=== PATIENT | female | born 2000 | race Caucasian/White ===

== ENCOUNTER 2021-05-06 13:38 | Inpatient (IN) ==
[~2021-05-06 13:38] MED LIST: *HR* Propofol 200 MG/20 ML VIAL IVP ONE; *HR* Rocuronium Bromide 50 MG/5 ML VIAL ONE; Lidocaine -MPF 2% 5 ML VIAL ONE
[2021-05-06] MEDS ORDERED: *HR* Succinylcholine 200 MG/10 ML VIAL IVP ONE (13:40)
[2021-05-06] MEDS ORDERED: Naloxone 0.4 MG/ML INJ IVP PRN (13:43)
[2021-05-06] MEDS ORDERED: Azithromycin 500 MG in 0.9 % Sodium Chloride 250 ML IVPB PRN (13:43)
[2021-05-06] MEDS ORDERED: Metoclopramide 10 MG/2 ML VIAL IVP PRN ×2 (13:43→14:21)
[2021-05-06] MEDS ORDERED: Ondansetron 4 MG/2 ML VIAL IVP PRN ×2 (13:43→14:21)
[2021-05-06] MEDS ORDERED: Famotidine 20 MG/2 ML VIAL IVP PRN (13:43)
[2021-05-06] MEDS ORDERED: Ringers Solution, Lactated 1,000 ML IVC SCH (13:45)
[2021-05-06] MEDS ORDERED: *HR* Oxytocin 10 UNIT/ML VIAL ONE (13:50)
[2021-05-06] MEDS ORDERED: Oxytocin 20 units/ LR 1000 mL 20 UNIT/1,000 ML BAG IVC ONE (13:51)
[2021-05-06] MEDS ORDERED: *HR* FentaNYL (PF) 250 MCG/5 ML VIAL ONE (13:57)
[2021-05-06] MEDS ORDERED: Ondansetron 4 MG/2 ML VIAL ONE (14:09)
[2021-05-06 14:12] LABS: Basophils % 0.3 %; Eosinophils # 0.3 K/mcL (0.0-0.6); Eosinophils % 2.7 %; Hematocrit 31.8 % (35.3-44.9); Hemoglobin 10.7 g/dL (11.5-15.4); Immature Granulocytes % 0.4 % (0-4); Lymphocytes # 2.1 K/mcL (0.6-4.6); Lymphocytes % 18.7 %; Mean Corpuscular HGB Conc 33.6 g/dL (31.6-35.5); Mean Corpuscular Hemoglobin 28.2 pg (28.0-33.3); Mean Corpuscular Volume 83.9 fL (83.0-100.0); Mean Platelet Volume 11.4 fL (9.4-12.4); Monocytes # 0.5 K/mcL (0.0-1.3); Monocytes % 4.5 %; Neutrophils # 8.4 K/mcL (1.6-8.9); Platelet Count 261 K/mcL (140-400); Red Blood Count 3.79 M/mcL (3.82-4.97); Segmented Neutrophils % 73.4 %; White Blood Count 11.5 K/mcL (4.3-11.1)
[2021-05-06] MEDS ORDERED: Ketorolac 30 MG/ML VIAL ONE (14:18)
[2021-05-06] MEDS ORDERED: Acetaminophen IV 1,000 MG/100 ML BAG IVPB ONE (14:19)
[2021-05-06] MEDS ORDERED: Simethicone 80 MG TAB.CHEW PO PRN (14:21)
[2021-05-06] MEDS ORDERED: Rho Immune Globulin 1,500 UNIT SYRINGE IM ONE (14:21)
[2021-05-06] MEDS ORDERED: Oxytocin 20 units/ LR 1000 mL 20 UNIT/1,000 ML BAG IVC SCH (14:30)
[2021-05-06 14:50] LABS: Influenza A PCR Negative (Negative); Influenza B PCR Negative (Negative); Resp. Syncytial Virus PCR Negative (Negative)
[2021-05-06] MEDS ORDERED: *HR* HYDROmorphone PF 0.5 MG/0.5 ML SYRINGE IVP PRN (15:07)
[2021-05-06] MEDS ORDERED: Promethazine 6.25 MG in Water for inj. (sterile) 20 ML IVPB PRN (15:07)
[2021-05-06] MEDS ORDERED: *HR* Labetalol 20 MG/4 ML SYRINGE IVP PRN (15:07)
[2021-05-06] MEDS ORDERED: Ringers Solution, Lactated 1,000 ML ONE (15:27)
[2021-05-06 15:36] LABS: SARS-CoV-2 by PCR (In House) Positive (Negative)
[2021-05-06 16:24] LABS: Amphetamine Screen,Urine Positive ng/mL (Cutoff=1000); Barbiturate Screen,Urine Negative ng/mL (Cutoff=200); Benzodiazepines Screen,Urine Negative ng/mL (Cutoff=200); Cannabinoid Screen,Urine Negative ng/mL (Cutoff = 50); Cocaine Screen,Urine Negative ng/mL (Cutoff= 300); Opiate Screen,Urine Negative ng/mL (Cutoff=300); Phencyclidine Screen,Urine Negative ng/mL (Cutoff=25)
[2021-05-06] MEDS: Acetaminophen 325 MG TABLET PO SCH (18:34)
[2021-05-06] MEDS: *HR* OxyCODONE Immed Rel 5 MG TABLET PO PRN (18:35)
[2021-05-06] MEDS: Ibuprofen 600 MG TABLET PO SCH (18:35)
[2021-05-07] MEDS: metroNIDAZOLE 500 MG TABLET PO SCH ×4 (00:28→19:57)
[2021-05-07] MEDS: Ibuprofen 600 MG TABLET PO SCH ×3 (00:28→18:50)
[2021-05-07] MEDS: cefOXitin 2,000 MG in 0.9 % Sodium Chloride Mini Bag 100 ML IVPB SCH ×2 (00:29→09:38)
[2021-05-07] MEDS: *HR* OxyCODONE Immed Rel 5 MG TABLET PO PRN ×2 (04:36→19:57)
[2021-05-07] MEDS: Acetaminophen 325 MG TABLET PO SCH ×2 (04:37→18:50)
[2021-05-07 04:59] LABS: Basophils % 0.1 %; Hematocrit 24.9 % (35.3-44.9); Immature Granulocytes % 0.5 % (0-4); Lymphocytes # 1.6 K/mcL (0.6-4.6); Lymphocytes % 10.7 %; Mean Corpuscular HGB Conc 34.1 g/dL (31.6-35.5); Mean Corpuscular Hemoglobin 28.6 pg (28.0-33.3); Mean Corpuscular Volume 83.8 fL (83.0-100.0); Mean Platelet Volume 11.3 fL (9.4-12.4); Monocytes # 0.7 K/mcL (0.0-1.3); Monocytes % 4.7 %; Neutrophils # 12.9 K/mcL (1.6-8.9); Platelet Count 252 K/mcL (140-400); Red Blood Count 2.97 M/mcL (3.82-4.97); Red Cell Distribution Width 14.2 % (11.5-14.5); White Blood Count 15.3 K/mcL (4.3-11.1)
[2021-05-07 05:10] LABS: Hemoglobin 8.5 g/dL (11.5-15.4)
[2021-05-07] MEDS: Prenatal Vit/FA 1 EACH TABLET PO SCH (09:39)
[2021-05-07] MEDS: levETIRAcetam 250 MG TABLET PO SCH ×2 (11:32→19:57)
[2021-05-08] MEDS: Acetaminophen 325 MG TABLET PO SCH (01:38)
[2021-05-08] MEDS: Ibuprofen 600 MG TABLET PO SCH ×2 (01:38→10:01)
[2021-05-08 02:15] LABS: Basophils % 0.1 %; Eosinophils # 0.2 K/mcL (0.0-0.6); Eosinophils % 2.1 %; Hematocrit 20.9 % (35.3-44.9); Immature Granulocytes % 0.7 % (0-4); Lymphocytes # 2.1 K/mcL (0.6-4.6); Lymphocytes % 25.8 %; Mean Corpuscular HGB Conc 32.1 g/dL (31.6-35.5); Mean Corpuscular Hemoglobin 27.7 pg (28.0-33.3); Mean Corpuscular Volume 86.4 fL (83.0-100.0); Mean Platelet Volume 11.4 fL (9.4-12.4); Monocytes # 0.4 K/mcL (0.0-1.3); Monocytes % 4.4 %; Neutrophils # 5.5 K/mcL (1.6-8.9); Platelet Count 156 K/mcL (140-400); Red Blood Count 2.42 M/mcL (3.82-4.97); Red Cell Distribution Width 14.6 % (11.5-14.5); Segmented Neutrophils % 66.9 %; White Blood Count 8.2 K/mcL (4.3-11.1)
[2021-05-08 02:17] LABS: Hemoglobin 6.7 g/dL (11.5-15.4)
[2021-05-08 05:18] LABS: % Iron Saturation 9 % (15-50); Iron 33 mcg/dL (50-170); Transferrin 257 mg/dL (203-362)
[2021-05-08] MEDS ORDERED: levETIRAcetam 250 MG TABLET PO SCH (08:00)
[2021-05-08 08:03] VITALS: BP 107/64; PULSE 77; TEMP 98.2; O2SAT 99
[2021-05-08] MEDS: metroNIDAZOLE 500 MG TABLET PO SCH (10:02)
[2021-05-08] MEDS: Prenatal Vit/FA 1 EACH TABLET PO SCH (10:02)
[2021-05-08 13:13] LABS: Hematocrit 21.6 % (35.3-44.9)
== END 2021-05-08 16:03 | disposition home or self-care (01) | DRG 560 ==
LOC: 1NENULAB 13:38 → 1NENUPED 18:23
PROVIDERS: ADMIT Obstetrics & Gynecology; ATTEND Obstetrics & Gynecology